=== PATIENT | male | born 1935 | race Asian ===

== ENCOUNTER 2018-01-11 23:34 | Inpatient (IN) | payer OTHER, MEDICAID ==
[2018-01-12] MEDS: SOD CHLORIDE 0.9% 1,000 ML IV (02:48)
[2018-01-12 02:52] LABS: ADD MAN DIFF? NO
[2018-01-12 02:55] LABS: BASOPHIL # 0.1 10^3/ul (0.0-0.1); BASOPHILS % 0.8 % (0.0-2.0); EOSINOPHILS # 0.4 10^3/ul (0.0-0.5); EOSINOPHILS % 4.6 % (0.0-7.0); HEMATOCRIT 46.4 % (42.0-52.0); HEMOGLOBIN 15.7 g/dl (14.0-18.0); LYMPHOCYTES % 34.8 % (15.0-51.0); MEAN CORPUSCULAR HEMOGLOBIN 31.5 pg (29.0-33.0); MEAN CORPUSCULAR HGB CONC 33.8 g/dl (32.0-37.0); MEAN PLATELET VOLUME 9.8 fl (7.4-10.4); MONOCYTE # 0.5 10^3/ul (0.3-0.9); MONOCYTES % 6.2 % (0.0-11.0); NEUTROPHIL # 4.7 10^3/ul (1.6-7.5); NEUTROPHILS % 53.4 % (39.0-77.0); PLATELET COUNT 227 10^3/UL (140-415); RED BLOOD COUNT 4.99 10^6/ul (4.70-6.10); RED CELL DISTRIBUTION WIDTH 13.3 % (11.5-14.5)
[2018-01-12 02:55] LABS: WHITE BLOOD COUNT 8.7 10^3/ul (4.8-10.8)
[2018-01-12 03:14] LABS: INR 0.96; PROTIME 12.9 Sec (11.9-14.9)
[2018-01-12 03:15] LABS: PARTIAL THROMBOPLASTIN TIME 28.1 Sec (25.0-35.0)
[2018-01-12 03:19] LABS: ALANINE AMINOTRANSFERASE 37 IU/L (13-69); ALBUMIN 4.6 g/dl (3.3-4.9); ALBUMIN/GLOBULIN RATIO 1.43; ALKALINE PHOSPHATASE 64 IU/L (42-121); ANION GAP 17 (8-16); ASPARTATE AMINO TRANSFERASE 30 IU/L (15-46); BILIRUBIN,INDIRECT 0.5 mg/dl (0-1.1); BILIRUBIN,TOTAL 0.5 mg/dl (0.2-1.3); BLOOD UREA NITROGEN 14 mg/dl (7-20); CALCIUM 9.1 mg/dl (8.4-10.2); CARBON DIOXIDE 29 mmol/L (21-31); CHLORIDE 107 mmol/L (97-110); CREATININE 1.02 mg/dl (0.61-1.24); GLUCOSE 109 mg/dl (70-220); LIPASE 95 U/L (23-300); POTASSIUM 3.8 mmol/L (3.5-5.1); SODIUM 149 mmol/L (135-144); TOTAL PROTEIN 7.8 g/dl (6.1-8.1)
[2018-01-12 03:31] LABS: TROPONIN-I 0.014 ng/ml (0.00-0.12)
[2018-01-12 03:34] LABS: ADD UMIC NO; UR ASCORBIC ACID NEGATIVE (NEGATIVE); UR BILIRUBIN (Dip) NEGATIVE (NEGATIVE); UR BLOOD (Dip) NEGATIVE (NEGATIVE); UR CLARITY CLEAR (CLEAR); UR COLOR YELLOW (YELLOW); UR GLUCOSE (Dip) NEGATIVE (NEGATIVE); UR KETONES (Dip) NEGATIVE (NEGATIVE); UR LEUKOCYTE ESTERASE (Dip) NEGATIVE Leu/ul (NEGATIVE); UR NITRITE (Dip) NEGATIVE (NEGATIVE); UR SPECIFIC GRAVITY (Dip) 1.015 (1.003-1.030); UR TOTAL PROTEIN (Dip) NEGATIVE (NEGATIVE); UR UROBILINOGEN (Dip) NEGATIVE (NEGATIVE)
[2018-01-12 04:24] LABS: DIGOXIN 0.7 ng/ml (1.0-2.0)
[2018-01-12] MEDS: ENALAPRILAT 1.25 MG INJ IV (04:24)
[2018-01-12] MEDS ORDERED: DOCUSATE SODIUM 100 MG CAP PO (05:00)
[2018-01-12] MEDS ORDERED: HYDROCODONE/APAP (5/325) TAB PO (05:00)
[2018-01-12] MEDS ORDERED: BISACODYL (EC) 5 MG TAB PO (05:00)
[2018-01-12] MEDS ORDERED: LORAZEPAM 0.5 MG TAB PO (05:00)
[2018-01-12] MEDS ORDERED: ONDANSETRON 4 MG INJ IV (05:00)
[2018-01-12] MEDS: PANTOPRAZOLE (EC) 40 MG TAB PO (05:17)
[2018-01-12] MEDS: SOD CHLORIDE 0.45% 1,000 ML IV (05:17)
[2018-01-12 06:15] LABS: TROPONIN-I 0.012 ng/ml (0.00-0.12)
[2018-01-12] MEDS: hydrALAzine 20 MG INJ IV (06:27)
[2018-01-12] MEDS ORDERED: LORAZEPAM 2 MG INJ IV (07:00)
[2018-01-12] MEDS: LORAZEPAM 2 MG INJ IV (07:00)
[2018-01-12] MEDS ORDERED: FAMOTIDINE 20 MG TAB PO (09:00)
[2018-01-12] MEDS: BENAZEPRIL 20 MG TAB PO ×2 (09:24→21:55)
[2018-01-12] MEDS: FENOFIBRATE 145 MG TAB PO (09:24)
[2018-01-12] MEDS: ASPIRIN (EC) 81 MG TAB PO (09:24)
[2018-01-12] MEDS: METOPROLOL 100 MG TAB PO ×3 (09:25→21:56)
[2018-01-12 12:15] LABS: TROPONIN-I < 0.012 ng/ml (0.00-0.12)
[2018-01-12] MEDS: ACETAMINOPHEN 325 MG TAB PO (14:00)
[2018-01-12] MEDS: DIGOXIN 0.125 MG TAB PO (14:00)
[2018-01-12] MEDS: INFLUENZA VIRUS VACCINE 0.5 ML (DISPENSING) IM* (21:48)
[2018-01-12] MEDS: TAMSULOSIN (SR) 0.4 MG CAP PO (21:55)
[2018-01-12] MEDS: ATORVASTATIN 20 MG TAB PO (21:55)
[2018-01-12] MEDS: METOPROLOL (XL) 100 MG TAB PO (22:30)
[2018-01-13] MEDS: PANTOPRAZOLE (EC) 40 MG TAB PO (06:10)
[2018-01-13 07:58] LABS: ADD MAN DIFF? NO
[2018-01-13 08:01] LABS: BASOPHILS % 0.4 % (0.0-2.0); EOSINOPHILS # 0.2 10^3/ul (0.0-0.5); EOSINOPHILS % 3.2 % (0.0-7.0); HEMATOCRIT 40.9 % (42.0-52.0); LYMPHOCYTES # 2.2 10^3/ul (0.8-2.9); LYMPHOCYTES % 32.1 % (15.0-51.0); MEAN CORPUSCULAR HEMOGLOBIN 31.6 pg (29.0-33.0); MEAN CORPUSCULAR HGB CONC 34.2 g/dl (32.0-37.0); MEAN CORPUSCULAR VOLUME 92.3 fl (82.0-101.0); MEAN PLATELET VOLUME 9.6 fl (7.4-10.4); MONOCYTE # 0.5 10^3/ul (0.3-0.9); MONOCYTES % 6.7 % (0.0-11.0); NEUTROPHIL # 3.9 10^3/ul (1.6-7.5); NEUTROPHILS % 57.3 % (39.0-77.0); PLATELET COUNT 198 10^3/UL (140-415); RED BLOOD COUNT 4.43 10^6/ul (4.70-6.10)
[2018-01-13 08:01] LABS: WHITE BLOOD COUNT 6.9 10^3/ul (4.8-10.8)
[2018-01-13 08:18] LABS: HEMOGLOBIN A1C 5.4 % (0-5.9)
[2018-01-13 08:25] LABS: ALANINE AMINOTRANSFERASE 39 IU/L (13-69); ALBUMIN 3.7 g/dl (3.3-4.9); ALBUMIN/GLOBULIN RATIO 1.27; ALKALINE PHOSPHATASE 55 IU/L (42-121); ANION GAP 15 (8-16); ASPARTATE AMINO TRANSFERASE 22 IU/L (15-46); BILIRUBIN,INDIRECT 0.7 mg/dl (0-1.1); BILIRUBIN,TOTAL 0.7 mg/dl (0.2-1.3); BLOOD UREA NITROGEN 17 mg/dl (7-20); CALCIUM 8.9 mg/dl (8.4-10.2); CARBON DIOXIDE 26 mmol/L (21-31); CHLORIDE 108 mmol/L (97-110); CHOL/HDL RATIO 6.3 RATIO; CHOLESTEROL 166 mg/dl (100-200); CREATININE 1.08 mg/dl (0.61-1.24); GLUCOSE 117 mg/dl (70-220); HDL CHOLESTEROL 26 mg/dl (31-75); LDL CHOLESTEROL,CALCULATED 104 mg/dl; POTASSIUM 3.7 mmol/L (3.5-5.1); SODIUM 145 mmol/L (135-144); TOTAL PROTEIN 6.6 g/dl (6.1-8.1); TRIGLYCERIDES 182 mg/dl (0-149)
[2018-01-13 08:52] LABS: THYROID STIMULATING HORMONE 0.423 MIU/L (0.465-4.680)
[2018-01-13] MEDS: BENAZEPRIL 20 MG TAB PO (08:58)
[2018-01-13] MEDS: ASPIRIN (EC) 81 MG TAB PO (08:58)
[2018-01-13] MEDS: FENOFIBRATE 145 MG TAB PO (08:59)
[2018-01-13] MEDS: METOPROLOL (XL) 100 MG TAB PO (08:59)
[2018-01-13 10:37] LABS: FREE T4 (FREE THYROXINE) 1.11 ng/dl (0.85-1.93)
[2018-01-13] MEDS: DIGOXIN 0.125 MG TAB PO (17:16)
[2018-01-13] MEDS: WARFARIN 5 MG TAB PO (17:16)
== END 2018-01-13 18:20 | disposition home or self-care (01) | DRG 312 ==
LOC: E/R 23:34 → MS4 01-12 04:25
DX: R55 Syncope and collapse (principal); I67.4 Hypertensive encephalopathy; I48.2 Chronic atrial fibrillation; R42 Dizziness and giddiness; I10 Essential (primary) hypertension; I44.0 Atrioventricular block, first degree; E78.5 Hyperlipidemia, unspecified; Z86.73 Personal history of transient ischemic attack (TIA), and cerebral infarction without residual deficits; Z87.891 Personal history of nicotine dependence
CPT/HCPCS: 36415; 70450; 70544; 71045; 80053; 80061; 80162; 81003; 83036; 83690; 83735; 84439; 84443; 84484; 85025; 85610; 85730; 87086; 90686; 93005; 93306; 93880; 96374; 97163; 99285-25